=== PATIENT | female | born 1985 | race African-American/Black ===

== ENCOUNTER 2020-02-13 13:35 | Emergency (ER) | payer OTHER ==
--- NOTE | 2020-02-13 13:58 | PDOC ---
History of Present Illness - General Chief Complaint: Syncope/Near Syncope Stated Complaint: SYNCOPY Time Seen by Provider: 02/13/20 13:57 History Source: Patient Exam Limitations: No Limitations - History of Present Illness Initial Comments: 02/13/20 14:41 34 y.o. F PMHx of HTN presenting to the ED by EMS due to a syncopal episode. Patient states she was cooking food when she felt lightheaded so she sat down on the floor. Her sister then assisted her to the couch where she felt her body go weak, unable to move and proceeded to "blackout" then EMS showed up. Patient had a recent myomectomy at [facility] on 02/06/20. She took 600mg of ibupofen and 500mg of tylenol today. PCP: Dr. Cunningham PMHx: HTN Meds: Labetalol, Hctz, Diltiazem Allergies: NKDA 02/14/20 09:22 Is this a multiple visit Asthma Patient?: No Past History - Medical History Allergies/Adverse Reactions: Allergies Allergy/AdvReac Type Severity Reaction Status Date / Time No Known Allergies Allergy Verified 02/13/20 14:02 Home Medications: Ambulatory Orders Diltiazem HCl [Diltiazem 24Hr Cd] 240 mg PO DAILY 02/13/20 Hydrochlorothiazide [Hctz -] 25 mg PO DAILY 02/13/20 Labetalol HCl 300 mg PO BID 02/13/20 Review of Systems - Review of Systems Constitutional: No: Chills, Fever HEENTM: No: Blurred Vision, Double Vision Respiratory: No: Cough, Shortness of Breath Cardiac (ROS): Yes: Syncope. No: Chest Pain, Edema, Lightheadedness, Palpitations ABD/GI: No: Abdominal Distended, Constipated, Diarrhea, Nausea, Vomiting, Indigestion : No: Burning, Dysuria Musculoskeletal: No: Back Pain, Joint Pain Integumentary: No: Bruising, Dryness, Erythema, Flushing Neurological: Yes: Dizziness. No: Headache, Numbness, Paresthesia, Tremors Hematologic/Lymphatic: No: Easy Bleeding, Easy Bruising *Physical Exam - Physical Exam General Appearance: Yes: Nourished, Appropriately Dressed. No: Apparent Distress Respiratory/Chest: positive: Lungs Clear, Normal Breath Sounds. negative: Chest Tender, Respiratory Distress, Accessory Muscle Use, Crackles, Rales, Rhonchi, Stridor Cardiovascular: positive: Regular Rhythm, Regular Rate. negative: Edema, JVD, Murmur Gastrointestinal/Abdominal: positive: Normal Bowel Sounds, Tender (Midline incision due to recent fibroidectomy ), Flat, Soft. negative: Distended, Guarding, Rebound Musculoskeletal: positive: Normal Inspection. negative: CVA Tenderness Extremity: positive: Normal Inspection. negative: Tender, Swelling, Calf Tenderness Integumentary: positive: Normal Color, Dry, Warm. negative: Swelling, Ecchymosis Neurologic: positive: Fully Oriented, Alert, Normal Mood/Affect, Normal Response, Motor Strength 5/5. negative: Numbness, Sensory Deficit ED Treatment Course - LABORATORY CBC & Chemistry Diagram: 02/13/20 15:42 02/13/20 15:42 Medical Decision Making - Medical Decision Making 02/13/20 14:50 34 y.o. F PMHx of HTN presenting to the ED by EMS due to a syncopal episode. DDx: syncopal episode (vasovagal vs neurologic) Labs: WBC 7.8, Hgb 8.9, Hct 28.7 CT: Pending read UA: Leuk esterase and bacteria WNL Dispo: Pending Labs from 02/08 Hgb 8.9, Hct 28.7 02/13/20 17:[address] Strange Discharge - Discharge Information Problems reviewed: Yes Clinical Impression/Diagnosis: Near syncope Condition: Improved Disposition: HOME - Follow up/Referral Referrals: Danielle Cunningham MD [Primary Care Provider] - - Patient Discharge Instructions Patient Printed Discharge Instructions: DI for Syncope in Adults (Fainting) Additional Instructions: You were seen in the ER after feeling weak. Your bloodwork and CT scans were normal. 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 Return to the ER if you develop high fevers, worsening weakness, confusion, nausea, intractable vomiting, chest pain, or difficulty breathing. - Post Discharge Activity
[2020-02-13 14:50] VITALS: TEMP 98.6; BMI 41.1
[2020-02-13] MEDS ORDERED: ACETAMINOPHEN 325 MG TABLET (FP) PO ONE (15:29)
--- NOTE | 2020-02-13 15:49 | PDOC ---
Attending Attestation - Resident Resident Name: Hilton Pham - ED Attending Attestation I have performed the following: I have examined & evaluated the patient, The case was reviewed & discussed with the resident, I agree w/resident's findings & plan - HPI HPI: 02/13/20 15:42 34-year-old female with history of hypertension, status post open myomectomy on 02/06 at [facility] complicated by postoperative anemia monitored for transfusion but never received transfusion, now home for the last 4 days with occasional episodes of lightheadedness presents with near syncopal episode today. Patient was at this baseline, she stood up from couch and walked to the kitchen and felt lightheaded, called her sister for help, and then was noted to almost lose consciousness, she was placed in a chair and was alert but not responsive, patient recalls the events. She denies any chest pain or palpitations or shortness of breath, no seizure-like activity, no urinary incontinence, no headache. Has had some vaginal bleeding since the surgery but it is slowing down, now feels completely well. No history of transfusions in the past, no history of syncope in the past. Preoperatively, had EKG clearance but never had echo or stress test. - Physicial Exam PE: 02/13/20 15:45 Vital signs stable, afebrile Well-appearing seated comfortably in stretcher Slight conjunctival pallor, no jaundice Heart is regular, no tachycardia, no murmurs. Lungs are clear Abdomen is soft/nondistended, ko-incisional discomfort to palpation, no guarding or rebound, incision is clean/dry/intact No leg swelling or calf tenderness, 2+ distal pulses Neurologically intact - Medical Decision Making 02/13/20 15:45 34-year-old female with hypertension presents with near syncopal episode, known anemia and 1 week status post open myomectomy. Hemodynamically stable here with benign abdominal exam, no evidence of infection. Presentation seems most consistent with orthostatic episode versus symptomatic anemia, abd benign, post- op bleed/collection seems less likely. not consistent with ACS or PE. labs, ua ekg with LVH, likely from chronic HTN. no ischemic changes consider ctap prbc as indicated on labs - get baseline labs from [facility] team reassess Heart Score/ECG Review #1 ECG reviewed & interpreted by me at: 13:43 General ECG Interpretation: Sinus Rhythm, Normal Rate (67), Normal Intervals (qtc 464, LVH), No acute ischemic changes Discharge - Discharge Information Problems reviewed: Yes Clinical Impression/Diagnosis: Near syncope Condition: Improved - Follow up/Referral Referrals: Danielle Cunningham MD [Primary Care Provider] - - Patient Discharge Instructions - Post Discharge Activity
[2020-02-13] MEDS ORDERED: ACETAMINOPHEN 325 MG TABLET (FP) ONE (15:57)
[2020-02-13 16:02] LABS: BASO % 0.6 % (0-2.0); EOS % 2.8 % (0-4.5); HEMATOCRIT 30.8 % (32.4-45.2); LYMPH % 25.8 % (8-40); MCH 25.1 pg (25.7-33.7); MCHC 32.3 g/dl (32.0-36.0); MEAN CELL VOLUME 77.6 fl (80-96); MEAN PLT VOLUME 8.1 fl (7.5-11.1); MONO % 4.7 % (3.8-10.2); NEUT % 66.1 % (42.8-82.8); PLATELET COUNT 307 K/MM3 (134-434); RBC 3.97 M/mm3 (3.60-5.2); RDW 15.9 % (11.6-15.6); WHITE BLOOD COUNT 7.8 K/mm3 (4.0-10.0)
[2020-02-13 16:40] LABS: ALBUMIN 3.7 g/dl (3.4-5.0); BILIRUBIN,TOTAL 0.2 mg/dL (0.2-1); BLOOD UREA NITROGEN 10.9 mg/dL (7-18); CALCIUM 9.5 mg/dL (8.5-10.1); CREATININE 0.9 mg/dL (0.55-1.3); POTASSIUM 4.2 mmol/L (3.5-5.1); TOT PROT 7.3 g/dl (6.4-8.2)
[2020-02-13 16:43] LABS: PH,URINE 7.5 (5.0-8.0); URINE APPEARANCE CLEAR; URINE BILIRUBIN NEGATIVE (NEGATIVE); URINE COLOR YELLOW; URINE GLUCOSE (UA) NEGATIVE (NEGATIVE); URINE KETONE NEGATIVE (NEGATIVE); URINE LEUK ESTERASE NEGATIVE (NEGATIVE); URINE NITRITE NEGATIVE (NEGATIVE); URINE PROTEIN NEGATIVE (NEGATIVE); URINE UROBILINOGEN 0.2 mg/dL (0.2-1.0)
[2020-02-13 19:01] VITALS: BP 152/85; PULSE 56
--- NOTE | 2020-02-13 19:47 | PDOC ---
*Physical Exam - Vital Signs Last Vital Signs Temp Pulse Resp BP Pulse Ox 98.6 F 56 L 18 152/85 100 02/13/20 13:35 02/13/20 18:30 02/13/20 18:30 02/13/20 18:30 02/13/20 18:30 ED Treatment Course - LABORATORY CBC & Chemistry Diagram: 02/13/20 15:42 02/13/20 15:42 - ADDITIONAL ORDERS Additional order review: Laboratory Results 02/13/20 02/13/20 16:22 15:42 Sodium 137 Potassium 4.2 Chloride 104 Carbon Dioxide 26 Anion Gap 7 L BUN 10.9 Creatinine 0.9 Est GFR (CKD-EPI)AfAm 96.69 Est GFR (CKD-EPI)NonAf 83.42 Random Glucose 95 Calcium 9.5 Total Bilirubin 0.2 AST 13 L ALT 16 Alkaline Phosphatase 44 L Total Protein 7.3 Albumin 3.7 Urine Color Yellow Urine Appearance Clear Urine pH 7.5 Ur Specific [place] 1.008 L Urine Protein Negative Urine Glucose (UA) Negative Urine Ketones Negative Urine Blood Negative Urine Nitrite Negative Urine Bilirubin Negative Urine Urobilinogen 0.2 Ur Leukocyte Esterase Negative 02/13/20 15:42 RBC 3.97 MCV 77.6 L MCHC 32.3 RDW 15.9 H MPV 8.1 Neutrophils % 66.1 Lymphocytes % 25.8 Monocytes % 4.7 Eosinophils % 2.8 Basophils % 0.6 - Medications Given in the ED: ED Medications Discontinued Medications Generic Name Dose Route Start Last Admin Trade Name Freq PRN Reason Stop Dose Admin Acetaminophen 650 mg 02/13/20 15:29 02/13/20 16:00 Tylenol - PO 02/13/20 15:30 650 mg ONCE ONE Administration Medical Decision Making - Medical Decision Making Sign out received during shift change by Dr. Pham. 34F BIBEMS s/p syncopal episode, recent myomectomy. CBC, CMP wnl, patient feels improved since arrival to ED. Pending: CT abdomen/pelvis read Dispo: Likely discharge pending imaging report --- CT abdomen/pelvis negative for acute process. Plan for discharge with close PCP, redeye gunner follow up. Discharge - Discharge Information Problems reviewed: Yes Clinical Impression/Diagnosis: Near syncope Condition: Improved Disposition: HOME - Admission No - Follow up/Referral Referrals: Danielle Cunningham MD [Primary Care Provider] - - Patient Discharge Instructions Patient Printed Discharge Instructions: DI for Syncope in Adults (Fainting) Additional Instructions: You were seen in the ER after feeling weak. Your bloodwork and CT scans were normal. 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 Return to the ER if you develop high fevers, worsening weakness, confusion, nausea, intractable vomiting, chest pain, or difficulty breathing. - Post Discharge Activity
--- NOTE | 2020-02-14 11:03 | EKG ---
Test Reason : Blood Pressure : / mmHG Vent. Rate : 067 BPM Atrial Rate : 067 BPM P-R Int : 172 ms QRS Dur : 096 ms QT Int : 440 ms P-R-T Axes : 016 009 057 degrees QTc Int : 464 ms NORMAL SINUS RHYTHM VOLTAGE CRITERIA FOR LEFT VENTRICULAR HYPERTROPHY ABNORMAL ECG NO PREVIOUS ECGS AVAILABLE Confirmed by MD Grisel, Minesh ([id number]) on 02/14/2020 11:03:16 AM Referred By: Confirmed By:Minesh Recinos MD
== END 2020-02-13 21:06 | disposition home or self-care (01) ==
LOC: JER 13:35 → EDBD 13:35 → JER 21:06
DX: R55 Syncope and collapse (principal)
CPT/HCPCS: 36415; 74177-TC; 80053; 81003; 85025; 93005; 93010; 99285-25; Q9967